=== PATIENT | male | born 1960 | race Caucasian/White ===

== ENCOUNTER 2017-02-14 19:00 | Emergency (ER) | payer SELFPAY ==
--- NOTE | 2017-02-14 19:12 | EDPHY ---
H & P HPI/ROS: HPI CHIEF COMPLAINT: Dog bite right posterior thigh and right gluteus HISTORY OF PRESENT ILLNESS: This patient very pleasant 56-year-old male significant past medical history for hypertension, presents emergency room by private vehicle (WALK IN), after states he was bit by a dog approximately 2 hours ago. He tells me his tetanus shot is not up-to-date. He is very vague about the story of the dog bite. He tells me that he was walking up to a friend 's house however he does not remember wears friend's house is and states possibly 2 dogs bit him. States he does not know the house where the dog's been is not know the dog's he cannot describe the dogs. He states it happened very fast. He is complaining of abrasions and cuts to right gluteus and right posterior thigh. No other injuries. He does also tell me that he has been drinking today. He is not slurring his speech knee is stable gait. Tells me had a few "shooter's." He denies being intoxicated. Denies drug use tobacco use. Patient tells me lives across the street in the [facility]. Past Medical History: Hypertension Past Surgical History: No recent surgical history Social History: Occasional alcohol use admits to drinking sugars today. Denies drug use tobacco Family History: Noncontributory ROS REVIEW OF SYSTEMS: A comprehensive 10 point review of systems is otherwise negative aside from elements mentioned in the history of present illness. Exam Constitutional triage nursing summary reviewed, vital signs reviewed, awake/ alert. Eyes normal conjunctivae and sclera, EOMI, PERRLA. HENT normal inspection, atraumatic, moist mucus membranes, no epistaxis, neck supple/ no meningismus, no raccoon eyes. Respiratory clear to auscultation bilaterally, normal breath sounds, no respiratory distress, no wheezing. Cardiovascular rate normal, regular rhythm, no murmur, no edema, distal pulses normal. Gastrointestinal soft, non-tender, no rebound, no guarding, normal bowel sounds, no distension, no pulsatile mass. Genitourinary no CVA tenderness. Musculoskeletal no midline vertebral tenderness, full range of motion, no calf swelling, no tenderness of extremities, no meningismus, good pulses, neurovascularly intact. Skin right posterior gluteus and right posterior thigh show multiple abrasions no lacerations. No puncture wounds. His leg is neurovascularly intact distally. Right posterior gluteus appears to be a lipoma present versus hematoma. Patient tells me the bump is new. However his mobile nontender and feels like a lipoma. No evidence of large hematoma. Neurologic awake, alert and oriented x 3, AAOx3, moves all 4 extremities equally, motor intact, sensory intact, CN II-XII intact, normal cerebellar, normal vision, normal speech. Psychiatric normal mood/affect. Heme/Lymph/Immune no lymphadenopathy. Differential Diagnosis: Includes but is not limited to in a particular order soft tissue injury, soft tissue contusion, dog bite, hematoma, lipoma Medical Decision Making: Plan for this patient update his tetanus shot. Will clean his wounds copiously. There are no large lacerations or significant large puncture wounds that need to be repaired. Patient be placed on Augmentin 1st dose given here. Unable to identify where the dog bite happened but will put the case. Wound Care: Patient's wounds have been cleaned copiously. No foreign body in arterial injury no significant laceration or puncture wound in the be repaired. Dressing applied. 1st dose of Augmentin given here in emergency room. He understands watch wounds closely for signs infection. Source: Patient - Medical/Surgical History Hx Asthma: No Hx Chronic Respiratory Disease: No Hx Diabetes: No Hx Cardiac Disease: No Hx Renal Disease: No Hx Cirrhosis: No Hx Alcoholism: No Hx HIV/AIDS: No Hx Splenectomy or Spleen Trauma: No Other PMH: HTN . Left shoulder repair for ligament. Allergies/Adverse Reactions: No Known Allergies Allergy (Unverified 11/14/13 14:58) Home Medications: Medication Instructions Recorded Amoxicillin/Clavulanate Pot 875 mg PO BID #14 tab 02/14/17 [Augmentin 875 MG TAB (*)] NK [No Known Home Meds] 02/14/17 Departure - Departure Disposition: Home, Routine, Self-Care Clinical Impression: Dog bite Qualifiers: Encounter type: initial encounter Qualified Code(s): W54.0XXA - Bitten by dog, initial encounter Condition: Good Instructions: Animal Bite (ED) Additional Instructions: 1. Please watch your wound closely watch for infection if he sees significant redness, drainage swelling pain or pus return emergency room for evaluation. 2. I recommend taking Augmentin antibiotics prevent dog bite infection. Your 1st dose was given in the emergency room. Referrals: Trevor Smith MD [Primary Care Provider] - As per Instructions Prescriptions: Amoxicillin/Clavulanate Pot [Augmentin 875 MG TAB (*)] 875 mg PO BID #14 tab
[2017-02-14] MEDS ORDERED: TDAP ADULT 0.5 ML INJ (BOOSTRIX) IM ONE (19:16)
[2017-02-14] MEDS ORDERED: AMOX/CLAVULANATE 500/125 MG TAB PO ONE (19:16)
[2017-02-14 19:20] VITALS: BP 115/76; PULSE 82; RESP 18; TEMP 98.2; O2SAT 93
[2017-02-14] MEDS ORDERED: AMOXICILLIN/CLAVULANATE POT 875/125 MG TAB PO ONE (19:22)
== END 2017-02-14 20:00 | disposition home or self-care (01) ==
LOC: CED 19:00
DX: S31.815A Open bite of right buttock, initial encounter (principal); S71.151A Open bite, right thigh, initial encounter; I10 Essential (primary) hypertension; Z23 Encounter for immunization; W54.0XXA Bitten by dog, initial encounter; Y92.009 Unspecified place in unspecified non-institutional (private) residence as the place of occurrence of the external cause

== ENCOUNTER 2017-10-22 06:32 | Emergency (ER) | payer MEDICAID ==
--- NOTE | 2017-10-22 06:47 | EDPHY ---
H & P Stated Complaint: withdrawal from ETOH from the [facility] HPI/ROS: HPI CHIEF COMPLAINT: Alcohol withdrawal. HISTORY OF PRESENT ILLNESS: This patient very pleasant 57-year-old male, presents emergency room by private vehicle from the [facility]. Patient states he is a daily drinker. Drinks vodka and presents emergency room from the [facility] as he is going to withdrawal. He has no withdrawal medications. He denies any chest pain or shortness of breath. Denies hallucinations. Denies feeling shaky. Sent here to receive Librium. Past Medical History: No significant medical history except for alcoholism. Past Surgical History: No surgical history Social History: Lives locally, smokes tobacco, daily alcohol. Denies drugs. Family History: Noncontributory ROS REVIEW OF SYSTEMS: A comprehensive 10 point review of systems is otherwise negative aside from elements mentioned in the history of present illness. Exam Constitutional appears well nontoxic stable vital signs, triage nursing summary reviewed, vital signs reviewed, awake/alert. Eyes normal conjunctivae and sclera, EOMI, PERRLA. HENT normal inspection, atraumatic, moist mucus membranes, no epistaxis, neck supple/ no meningismus, no raccoon eyes. Respiratory clear to auscultation bilaterally, normal breath sounds, no respiratory distress, no wheezing. Cardiovascular rate normal, regular rhythm, no murmur, no edema, distal pulses normal. Gastrointestinal soft, non-tender, no rebound, no guarding, normal bowel sounds, no distension, no pulsatile mass. Genitourinary no CVA tenderness. Musculoskeletal no midline vertebral tenderness, full range of motion, no calf swelling, no tenderness of extremities, no meningismus, good pulses, neurovascularly intact. Skin pink, warm, & dry, no rash, skin atraumatic. Neurologic awake, alert and oriented x 3, AAOx3, moves all 4 extremities equally, motor intact, sensory intact, CN II-XII intact, normal cerebellar, normal vision, normal speech. Psychiatric normal mood/affect. Heme/Lymph/Immune no lymphadenopathy. Differential Diagnosis: Includes but is not limited to in a particular order acute alcohol withdrawal. Medical Decision Making: Plan for this patient Librium p.o. 1st dose here. Librium take-home for the [facility]. He is not tachycardic he appears well. He is not tremulous. He can be discharged to the [facility]. Source: Patient - Personal History Current Tetanus/Diphtheria Vaccine: Yes Current Tetanus Diphtheria and Acellular Pertussis (TDAP): Yes - Medical/Surgical History Hx Asthma: No Hx Chronic Respiratory Disease: No Hx Diabetes: No Hx Cardiac Disease: No Hx Renal Disease: No Hx Cirrhosis: No Hx Alcoholism: Yes Hx HIV/AIDS: No Hx Splenectomy or Spleen Trauma: No Other PMH: HTN . Left shoulder repair for ligament. - Social History Smoking Status: Never smoked Constitutional: Initial Vital Signs Temperature (C) 36.6 C 10/22/17 06:34 Heart Rate 91 10/22/17 06:34 Respiratory Rate 16 10/22/17 06:34 Blood Pressure 149/99 H 10/22/17 06:34 O2 Sat (%) 95 10/22/17 06:34 O2 Delivery Mode Room Air Allergies/Adverse Reactions: No Known Allergies Allergy (Verified 10/22/17 06:37) Home Medications: Medication Instructions Recorded NK [No Known Home Meds] 02/14/17 Departure - Departure Disposition: Home, Routine, Self-Care Clinical Impression: Alcohol withdrawal Qualifiers: Complication of substance-induced condition: uncomplicated Qualified Code(s): F10.230 - Alcohol dependence with withdrawal, uncomplicated Condition: Fair Instructions: Alcohol Withdrawal (ED), Chlordiazepoxide/Clidinium (By mouth) Referrals: Trevor Smith MD [Primary Care Provider] - As per Instructions
[2017-10-22] MEDS ORDERED: chlordiazePOXIDE 25 MG CAP PO ONE (06:48)
[2017-10-22] MEDS ORDERED: CHLORDIAZEPOXIDE 25MG PREPK#6 BTL TAKEHOME ONE (06:48)
[2017-10-22 07:41] VITALS: BP 151/99; PULSE 76; RESP 14; TEMP 97.5; O2SAT 98
== END 2017-10-22 08:13 | disposition home or self-care (01) ==
DX: F10.230 Alcohol dependence with withdrawal, uncomplicated (principal); I10 Essential (primary) hypertension

== ENCOUNTER 2018-03-26 13:26 | Emergency (ER) | payer MEDICAID ==
[2018-03-26] MEDS ORDERED: NS 2,000 ML IV ONE (14:01)
--- NOTE | 2018-03-26 14:09 | EDPHY ---
H & P Stated Complaint: 2 months of intermittent pain in right buttucks and thigh. Time Seen by Provider: 03/26/18 13:43 HPI/ROS: This patient came in complaining of right sciatic region pain for 2 months that is severe. He has not taken any medications for this. He drank half pt of hard liquor today in attempt to help diminish the pain and then walked here for further evaluation of the symptoms. He admits generalized weakness associated with the symptoms uncertain how long is felt generalized weakness. He reports that the pain in his right sciatic region is achy and radiates to the left posterior thigh but not all the way to the knee. He has no other associated symptoms except occasional cough that he attributes to smoking cigarettes. The cough is a dry cough in the morning that tends to clear. ROS: Constitutional: No fevers or chills. Positive generalized weakness HEENT: No URI symptoms currently. No sore throat. Neuro: No headache. No focal numbness tingling weakness. No bowel or bladder incontinence. Pulmonary: As per HPI - dry cough. No hemoptysis. No pleuritic pain. He does notice mild dyspnea with exertion. He is uncertain of how long that is been present. Cardiovascular: No heart palpitations. He denies chest pain. No leg swelling or calf pain. GI: No abdominal pain : No testicular swelling or pain. No dysuria, frequency urgency. No flank pain. Integumentary: No diaphoresis. No skin rash. Psychiatric: He admits feeling down regarding current social stressors of impending loss of his current home in 30 days. However he denies suicidal ideation or homicidal ideation. Complete review of symptoms otherwise negative. Source: Patient Exam Limitations: No limitations - Personal History Current Tetanus Diphtheria and Acellular Pertussis (TDAP): Yes - Medical/Surgical History PMH: Hypertension currently untreated Chronic pain on pain management in the past. He currently denies using any opiate medications. Hx Asthma: No Hx Chronic Respiratory Disease: No Hx Diabetes: No Hx Cardiac Disease: No Hx Renal Disease: No Hx Cirrhosis: No Hx Alcoholism: Yes Hx HIV/AIDS: No Hx Splenectomy or Spleen Trauma: No Other PMH: HTN . Left shoulder repair for ligament. carpal tunnel - Family History Significant Family History: Heart disease (Patient with a brother who had an NV at age 60. ) - Social History Smoking Status: Light smoker Alcohol Use: Heavy (The patient reports drinking 3 days a week but admits he has already had half pt of hard liquor today.) Drug Use: None Additional Social History: He denies any IV drug use, opiates or other drug use. - Physical Exam Exam: Notable for abnormal vital signs-hypertension at 90/52 and O2 sat of 89% on room air General Appearance: Alert, no distress. Eyes: Pupils equal and round no pallor or injection. ENT, Mouth: Mucous membranes dry. Positive for alcohol halitosis. Respiratory: There are no retractions, lungs are clear to auscultation. Cardiovascular: Regular rate and rhythm. No murmur gallop rub. No JVD. No peripheral edema. Gastrointestinal: Abdomen is soft and nontender, no masses, bowel sounds normal. Neurological: GCS 15. Slightly sluggish speech that would suggest alcohol intoxication. Skin: Warm and dry, no rashes. Musculoskeletal: Neck is supple nontender. Extremities are symmetrical, full range of motion. Psychiatric: Normal mood and affect. DIFFERENTIAL DIAGNOSIS: After history and physical exam differential diagnosis was considered for alcohol intoxication with dehydration, bronchitis, pneumonia , pulmonary embolism, myocardial ischemic disease, hepatitis, sciatica, pyelonephritis Constitutional: Initial Vital Signs Temperature (C) 36.5 C 03/26/18 13:32 Heart Rate 75 03/26/18 13:32 Respiratory Rate 16 03/26/18 13:32 Blood Pressure 90/52 L 03/26/18 13:32 O2 Sat (%) 89 L 03/26/18 13:32 O2 Delivery Mode Room Air Allergies/Adverse Reactions: No Known Allergies Allergy (Verified 10/22/17 06:37) Home Medications: Medication Instructions Recorded NK [No Known Home Meds] 02/14/17 Medical Decision Making - Diagnostics EKG Interpretation: 12 lead EKG performed at 2:19 p.m. Indication generalized weakness and hypotension Sinus rhythm at 68 Intervals: Normal except for borderline prolonged QT at [address] [place]: P of 57, QRS of 8, T of 42 degrees Overall assessment: Sinus rhythm with poor R-wave progression anteriorly and borderline prolonged QT otherwise normal. ED Course/Re-evaluation: IV normal saline bolus Supplemental O2 Departure - Departure Referrals: Trevor Smith MD [Primary Care Provider] - As per Instructions
--- NOTE | 2018-03-26 14:20 | CPEKG ---
Heart Rate: 68 RR Interval: 882 P-R Interval: 168 QRSD Interval: 86 QT Interval: 452 QTC Interval: 481 P [place]: 57 QRS [place]: 8 T Wave [place]: 42 EKG Severity - BORDERLINE ECG - EKG Impression: SINUS RHYTHM EKG Impression: BORDERLINE R WAVE PROGRESSION, ANTERIOR LEADS EKG Impression: BORDERLINE PROLONGED QT INTERVAL Electronically Signed By: Ian Pulliam 26-Mar-2018 14:31:26
[2018-03-26 15:13] LABS: PLATELET COUNT 231 10^3/uL (150-400)
[2018-03-26 15:50] VITALS: BP 103/67
== END 2018-03-26 16:31 | disposition home or self-care (01) ==
LOC: CED 13:26
DX: M54.9 Dorsalgia, unspecified (principal); G89.29 Other chronic pain; E86.0 Dehydration; I10 Essential (primary) hypertension; F17.210 Nicotine dependence, cigarettes, uncomplicated; E86.9 Volume depletion, unspecified; F10.129 Alcohol abuse with intoxication, unspecified
CPT/HCPCS: 71046-PO; 80053-PO; G0480

== ENCOUNTER 2018-06-10 17:27 | Emergency (ER) | payer MEDICAID ==
[2018-06-10 17:31] VITALS: BP 161/76
[2018-06-10] MEDS ORDERED: IPRATROPIUM/ALBUTEROL 3 ML DEYVIAL IH ONE (17:38)
--- NOTE | 2018-06-10 17:41 | EDPHY ---
H & P Stated Complaint: diagnosed with bronchitis a week ago, cough not improved Time Seen by Provider: 06/10/18 17:34 HPI/ROS: CHIEF COMPLAINT: Coughing HISTORY OF PRESENT ILLNESS: The patient is a 57-year-old man who comes to the emergency department complaining of persisting cough. He was seen here a week ago and diagnosed with bronchitis on chest x-ray. He was started on Levaquin, and albuterol inhaler and Tessalon Perles. She states that overall he has improved with that it night he still has a persistent cough that is keeping him awake. No fevers. He is not short of breath. No chest pain. No sore throat. Severity: Mild Modifying factors: Sleep REVIEW OF SYSTEMS: Constitutional: denies: chills, fever, recent illness, recent injury EENTM: denies: blurred vision, double vision, nose congestion Respiratory: See HPI denies: shortness of breath Cardiac: denies: chest pain, irregular heart rate, lightheadedness, palpitations Gastrointestinal/Abdominal: denies: abdominal pain, diarrhea, nausea, vomiting, blood streaked stools Genitourinary: denies: dysuria, frequency, hematuria, pain Musculoskeletal: denies: joint pain, muscle pain Skin: denies: lesions, rash, jaundice, bruising Neurological: denies: headache, numbness, paresthesia, tingling, dizziness, weakness Hematologic/Lymphatic: denies: blood clots, easy bleeding, easy bruising Immunologic/allergic: denies: HIV/AIDS, transplant 10 systems reviewed and negative except as noted EXAM: GENERAL: Well-appearing, well-nourished and in no acute distress. HEAD: Atraumatic, normocephalic. EYES: Pupils equal round and reactive to light, extraocular movements intact, sclera anicteric, conjunctiva are normal. ENT: TMs normal, nares patent, oropharynx clear without exudates. Moist mucous membranes. NECK: Normal range of motion, supple without lymphadenopathy or JVD. LUNGS: Breath sounds clear to auscultation bilaterally and equal. No wheezes rales or rhonchi. HEART: Regular rate and rhythm without murmurs, rubs or gallops. ABDOMEN: Soft, nontender, normoactive bowel sounds. No guarding, no rebound. No masses appreciated. BACK: No CVA tenderness, no spinal tenderness, step-offs or deformities EXTREMITIES: Normal range of motion, no pitting or edema. No clubbing or cyanosis. NEUROLOGICAL: Cranial nerves II through XII grossly intact. Normal speech, normal gait. 5/5 strength, normal movement in all extremities, normal sensation , normal reflexes PSYCH: Normal mood, normal affect. SKIN: Warm, dry, normal turgor, no visible rashes or lesions. Source: Patient Exam Limitations: No limitations - Medical/Surgical History Hx Asthma: No Hx Chronic Respiratory Disease: No Hx Diabetes: No Hx Cardiac Disease: No Hx Renal Disease: No Hx Cirrhosis: No Hx Alcoholism: Yes Hx HIV/AIDS: No Hx Splenectomy or Spleen Trauma: No Other PMH: HTN . Left shoulder repair for ligament. carpal tunnel - Family History Significant Family History: No pertinent family hx - Social History Smoking Status: Former smoker Alcohol Use: Sober Drug Use: None Constitutional: Initial Vital Signs Temperature (C) 37.2 C 06/10/18 17:29 Heart Rate 120 H 06/10/18 17:29 Respiratory Rate 18 06/10/18 17:29 Blood Pressure 161/76 H 06/10/18 17:29 O2 Sat (%) 92 06/10/18 17:29 O2 Delivery Mode Room Air Allergies/Adverse Reactions: No Known Allergies Allergy (Verified 06/10/18 17:28) Home Medications: Medication Instructions Recorded Gabapentin 05/13/18 Vivitrol 05/13/18 celeCOXIB [CeleBREX] 100 mg PO Q12 PRN #12 cap 05/13/18 Amitriptyline HCl 05/17/18 methylPREDNISolone [Medrol Dose 1 each PO AD #1 ea 05/17/18 [place]] traZODone 05/17/18 Albuterol Sulfate [Proair Hfa] 1 - 2 puffs IH Q4 PRN #1 hfa.aer.[id number] 06/03/18 Benzonatate [Tessalon Pearles (RX)] 100 mg PO Q6 PRN #12 cap 06/03/18 levOFLOXACIN [levAQUIN (*)] 750 mg PO DAILY #7 tab 06/03/18 Benzonatate [Tessalon Pearles (RX)] 100 mg PO Q6-8PRN PRN #20 cap 06/10/18 Medical Decision Making - Diagnostics Imaging: Discussed imaging studies w/ machine scallop cutter Radiologist ED Course/Re-evaluation: Patient is requesting an albuterol nebulizer. He states that this worked well when he was here last time. I will also repeat his x-ray. He is otherwise afebrile and well-appearing. He is not tachycardic in the room. 6:30 p.m. the patient is feeling better after his albuterol treatment. His x- ray looks slightly improved compared to last week. He states that he finished his Levaquin today but that he is out of MolecularMDon Perles. He is requesting a refill of this. Differential Diagnosis: Partial list of the Differential diagnosis considered include but were not limited to; bronchitis, cough, pneumonia, postnasal drip and although unlikely based on the history and physical exam, I also considered sepsis, acute coronary disease. I discussed these differential diagnoses and the plan with the patient as well as the usual and expected course. The patient understands that the diagnosis is provisional and that in medicine we are not always correct and that further workup is often warranted. Usual and customary warnings were given. All of the patient's questions were answered. The patient was instructed to return to the emergency department should the symptoms at all worsen or return, otherwise to followup with the physician as we discussed. - Data Points Medications Given: Discontinued Medications Albuterol/Ipratropium (Duoneb) 3 ml IH EDNOW ONE Stop: 06/10/18 17:39 Last Admin: 06/10/18 17:46 Dose: 3 ml Departure - Departure Disposition: Home, Routine, Self-Care Clinical Impression: Acute bronchitis Qualifiers: Bronchitis organism: unspecified organism Qualified Code(s): J20.9 - Acute bronchitis, unspecified Condition: Fair Instructions: Acute Bronchitis (ED) Additional Instructions: Obtain a follow-up x-ray in 1 month to make sure that your x-ray my markings completely resolved. Referrals: Trevor Smith MD [Primary Care Provider] - As per Instructions Prescriptions: Benzonatate [Tessalon Pearles (RX)] 100 mg PO Q6-8PRN PRN #20 cap PRN Reason: Cough
== END 2018-06-10 18:54 | disposition home or self-care (01) ==
DX: R05 Cough (principal); J20.9 Acute bronchitis, unspecified; F17.200 Nicotine dependence, unspecified, uncomplicated